=== PATIENT | male | born 1990 | race Caucasian/White ===

== ENCOUNTER 2017-09-13 23:25 | Emergency (ER) | payer OTHER ==
[2017-09-14] MEDS: IBUPROFEN 600 MG TAB PO (01:27)
[2017-09-14] MEDS: BACITRACIN 0.9 GM OINT TOP (01:27)
[2017-09-14] MEDS: DIPHTH/TET/ACEL PERTUSS (ADULT) 0.5 ML VIAL IM* (01:28)
== END 2017-09-14 02:52 | disposition home or self-care (01) ==
LOC: FTE 23:25
DX: S91.332A Puncture wound without foreign body, left foot, initial encounter (principal); J45.909 Unspecified asthma, uncomplicated; W45.0XXA Nail entering through skin, initial encounter; Y92.9 Unspecified place or not applicable; Z23 Encounter for immunization
CPT/HCPCS: 73630; 73630-LT; 90471; 90715; 99284-25